=== PATIENT | male | born 1965 | race Caucasian/White ===

== ENCOUNTER 2016-10-26 07:19 | Observation (INO) | payer OTHER ==
[~2016-10-26] VITALS: Ht 185.4 cm; Wt 107.5 kg
[~2016-10-26 07:19] MED LIST: NAPROSYN500 MG PO; NORCO 5/3251 TABLET PO; VALIUM2 MG PO
[2016-10-26 08:44] LABS: BASOPHIL COUNT 0.1 K/uL (0-0.1); EOSINOPHIL (%) 0.9 % (0-5); EOSINOPHIL COUNT 0.1 K/uL (0-0.3); IMMATURE GRANULOCYTE (%) 0.8 % (0.0-0.7); IMMATURE GRANULOCYTE COUNT 0.1 K/uL; INSTRUMENT ABS NEUTROPHIL CT 11.2 K/uL; LYMPHOCYTE COUNT 1.7 K/uL (1.0-2.8); MCH 30.5 PG (29.0-34.0); MCHC 33.8 G/DL (30.0-36.0); MCV 90.4 FL (86-99); MEAN PLAT.VOLUME 10.8 uM^3 (9.0-12.4); MONOCYTE (%) 6.1 % (3-12); MONOCYTE COUNT 0.9 K/uL (0-0.8); NEUTROPHIL (%) 79.3 % (45-76); NEUTROPHIL COUNT 11.2 K/uL (1.8-6.4); PLATELET COUNT 208 K/uL (156-360); RBC DIS.WIDTH-CV 13.6 % (11.8-14.6); RBC DIS.WIDTH-SD 45.1 % (39-53); RED BLOOD COUNT 5.31 M/uL (4.00-5.50); WHITE BLOOD COUNT 14.1 K/uL (4.1-10.2)
[2016-10-26 09:07] LABS: ANION GAP 10 MEQ/L (2-14); CHLORIDE 107 MEQ/L (99-109); POTASSIUM 3.7 MEQ/L (3.7-5.4); SAMPLE HEMOLYSIS CHECK 0; SAMPLE ICTERIC CHECK 0; SAMPLE LIPEMIA CHECK 0; SODIUM 139 MEQ/L (136-147)
[2016-10-26 09:12] LABS: GFR ESTIMATE (CALCULATED) > 59 mL/min/; GLUCOSE 131 mg/dL (70-99); UREA NITROGEN (BUN) 12 mg/dL (9-23)
[2016-10-26 10:16] LABS: ADD MIUA? YES; BILIRUBIN NEGATIVE; BLOOD LARGE; COLOR YELLOW ((YELLOW)); GLUCOSE (STRIP) 50; KETONES 5; LEUKOCYTES NEGATIVE; NITRITE NEGATIVE; PROTEIN (STRIP) 30; SPECIFIC GRAVITY 1.017 (1.000-1.030); UROBILINOGEN 0.2 MG/DL (0.2-1.0)
[2016-10-26 10:27] LABS: BACTERIA RARE /HPF; EPITHELIAL CELLS RARE /HPF; MUCUS TRACE /LPF; RED BLOOD CELLS TNTC /HPF (0-5); WHITE BLOOD CELLS 0-5 /HPF (0-5)
[2016-10-26 13:54] VITALS: BP 186/96
[2016-10-26 16:31] VITALS: BP 141/86
[2016-10-26 19:45] VITALS: BP 112/75
[2016-10-27 00:29] VITALS: BP 140/70
[2016-10-27 03:55] VITALS: BP 107/68
[2016-10-27 06:46] LABS: HEMATOCRIT 43.8 % (38.0-50.0); MCH 30.7 PG (29.0-34.0); MCHC 33.8 G/DL (30.0-36.0); MCV 90.9 FL (86-99); MEAN PLAT.VOLUME 10.2 uM^3 (9.0-12.4); PLATELET COUNT 186 K/uL (156-360); RBC DIS.WIDTH-CV 13.8 % (11.8-14.6); RBC DIS.WIDTH-SD 46.1 % (39-53); RED BLOOD COUNT 4.82 M/uL (4.00-5.50)
[2016-10-27 07:11] LABS: ANION GAP 8 MEQ/L (2-14); CHLORIDE 108 MEQ/L (99-109); GFR ESTIMATE (CALCULATED) 57 mL/min/; GLUCOSE 113 mg/dL (70-99); POTASSIUM 3.9 MEQ/L (3.7-5.4); SAMPLE HEMOLYSIS CHECK 0; SAMPLE ICTERIC CHECK 0; SAMPLE LIPEMIA CHECK 0; SODIUM 137 MEQ/L (136-147); UREA NITROGEN (BUN) 13 mg/dL (9-23)
[2016-10-27 07:22] VITALS: BP 163/84
[2016-10-27 11:19] VITALS: BP 119/63
[2016-10-27 12:12] VITALS: BP 119/63
[2016-10-27] MEDS ORDERED: ROXICODONE5 MG PO (12:31)
[2016-10-27] MEDS ORDERED: NICOTINE PATCH1 EAC2 TD (12:31)
[2016-10-27] MEDS ORDERED: TAMSULOSIN HCL0.4 MG PO (12:31)
== END 2016-10-27 13:23 | disposition home or self-care (01) ==
LOC: EME 07:19 → EDOF 11:24 → 5WEST 11:24
PROVIDERS: Emergency Medicine; Internal Medicine
DX: N13.2 Hydronephrosis with renal and ureteral calculous obstruction (principal); N17.9 Acute kidney failure, unspecified; D72.829 Elevated white blood cell count, unspecified; F17.200 Nicotine dependence, unspecified, uncomplicated; E66.9 Obesity, unspecified; Z68.31 Body mass index [BMI] 31.0-31.9, adult
CPT/HCPCS: 74000; 74176; 80048; 81003; 85025; 85027; 99281; 99285; G0378; J1170; J1650; J1885; J2270; J2405; J3010; J7030; J7050

== ENCOUNTER 2016-10-28 23:21 | Emergency (ER) | payer OTHER ==
[~2016-10-28] VITALS: Ht 185.4 cm; Wt 106.2 kg
[~2016-10-28 23:21] MED LIST changes: +NICOTINE PATCH1 EAC2 TD; +ROXICODONE5 MG PO; +TAMSULOSIN HCL0.4 MG PO
[2016-10-29 01:33] LABS: HEMATOCRIT 42.9 % (38.0-50.0); MCH 30.6 PG (29.0-34.0); MCHC 33.6 G/DL (30.0-36.0); MCV 91.3 FL (86-99); MEAN PLAT.VOLUME 10.9 uM^3 (9.0-12.4); PLATELET COUNT 199 K/uL (156-360); RBC DIS.WIDTH-CV 13.4 % (11.8-14.6); RBC DIS.WIDTH-SD 45.6 % (39-53); WHITE BLOOD COUNT 11.2 K/uL (4.1-10.2)
[2016-10-29 01:47] LABS: CHLORIDE 108 mEq/L (99-109); POTASSIUM 3.6 mEq/L (3.7-5.4); SODIUM 142 mEq/L (136-147)
[2016-10-29 01:49] LABS: GLUCOSE 113 mg/dL (70-99)
[2016-10-29 01:51] LABS: ANION GAP 9 MEQ/L (2-14); TOTAL BILIRUBIN 0.8 mg/dL (0.0-1.0)
[2016-10-29 01:53] LABS: ALKALINE PHOSPHATASE 65 IU/L (3-129); GFR ESTIMATE (CALCULATED) > 59 mL/min/
[2016-10-29 01:54] LABS: UREA NITROGEN (BUN) 12 mg/dL (9-23)
[2016-10-29 01:55] LABS: DIRECT BILIRUBIN 0.3 mg/dL (0.0-0.3)
[2016-10-29 01:56] LABS: LIPASE 20 U/L (1.0-51.0)
[2016-10-29 02:30] LABS: ADD MIUA? YES; BILIRUBIN NEGATIVE; BLOOD MODERATE; COLOR YELLOW ((YELLOW)); GLUCOSE (STRIP) NEGATIVE; KETONES NEGATIVE; LEUKOCYTES NEGATIVE; NITRITE NEGATIVE; PROTEIN (STRIP) 30; SPECIFIC GRAVITY 1.023 (1.000-1.030); UROBILINOGEN 0.2 MG/DL (0.2-1.0)
[2016-10-29] MEDS ORDERED: TORADOL10 MG PO (02:32)
[2016-10-29] MEDS ORDERED: PERCOCET 5/31 TABLET PO (02:32)
[2016-10-29 02:43] LABS: BACTERIA NONE SEEN /HPF; CALCIUM OXALATE CRYSTALS 1+ /HPF; EPITHELIAL CELLS NONE SEEN /HPF; MUCUS TRACE /LPF; RED BLOOD CELLS 15-20 /HPF (0-5); UCUL ADDED? NO
[2016-10-29] MEDS ORDERED: CIPRO500 MG PO (02:49)
[2016-10-29 03:00] VITALS: BP 153/87
== END 2016-10-29 03:02 | disposition home or self-care (01) ==
LOC: RME 23:21 → EME 23:21 → RME 10-29 03:02
DX: N20.0 Calculus of kidney (principal); F17.200 Nicotine dependence, unspecified, uncomplicated
CPT/HCPCS: 74000; 80048; 80076; 81003; 83690; 85027; 87086; 99281; 99285; J1885; J2270; J2405; J7030

== ENCOUNTER 2016-11-12 09:46 | Day surgery (SDC) | payer OTHER ==
[~2016-11-12] VITALS: Ht 185.4 cm; Wt 105.7 kg
[~2016-11-12 09:46] MED LIST changes: +CIPRO500 MG PO; +PERCOCET 5/31 TABLET PO; +TORADOL10 MG PO
== END 2016-11-12 10:13 | disposition home or self-care (01) ==
LOC: SDC 09:46
PROC: 0TJ9XZZ Inspection of Ureter, External Approach (ICD-10-PCS; principal; 2016-11-12)
DX: N20.1 Calculus of ureter (principal); Z53.09 Procedure and treatment not carried out because of other contraindication